=== PATIENT | male | born 1945 | race Caucasian/White ===

== ENCOUNTER → 2023-10-13 08:17 | Outpatient (REF) | payer MEDICARE, SELFPAY ==
[2023-10-13 10:35] LABS: ALT (SGPT) 21 U/L (0-50); AST (SGOT) 25 U/L (17-59); Albumin 4.1 g/dl (3.5-5.0); Alkaline Phosphatase 82 U/L (38-126); Blood Urea Nitrogen 16 mg/dl (9-20); Calcium 9.3 mg/dl (8.4-10.2); Carbon Dioxide 25 mmol/L (22-30); Chloride 105 mmol/L (98-107); Glucose 154 mg/dl (70-99); HDL Cholesterol 49 mg/dl; LDL Cholesterol, Calculated 103 mg/dl; Potassium 4.2 mmol/L (3.5-5.1); Sodium 136 mmol/L (135-145); Total Bilirubin 0.8 mg/dl (0.2-1.3); Total Cholesterol 186 mg/dl (50-199); Total Protein 7.3 g/dl (6.3-8.2); Triglyceride 173 mg/dl (10-149); Very Low Density Lipoprotein 34 mg/dl (0-30); eGFR > 60.00
[2023-10-13 13:08] LABS: Glycohemoglobin (HgbA1c) 7.8 % (4.0-5.6)
== END ==
LOC: HWLAB 08:17
PROVIDERS: ATTENDING PHYSICIAN Nurse Practitioner Family; FAMILY PHYSICIAN Family Medicine
DX: E11.9 Type 2 diabetes mellitus without complications (principal)
CPT/HCPCS: 36415; 80053; 80061; 83036

== ENCOUNTER → 2024-01-01 09:14 | Outpatient (REF) | payer MEDICARE, SELFPAY ==
[2024-01-01 12:23] LABS: ALT (SGPT) 24 U/L (0-50); AST (SGOT) 26 U/L (17-59); Albumin 4.4 g/dl (3.5-5.0); Alkaline Phosphatase 77 U/L (38-126); Blood Urea Nitrogen 16 mg/dl (9-20); Calcium 9.5 mg/dl (8.4-10.2); Carbon Dioxide 26 mmol/L (22-30); Chloride 107 mmol/L (98-107); Glucose 171 mg/dl (70-99); Potassium 4.3 mmol/L (3.5-5.1); Sodium 141 mmol/L (135-145); Total Bilirubin 0.7 mg/dl (0.2-1.3); Total Protein 7.6 g/dl (6.3-8.2); eGFR > 60.00
[2024-01-01 12:57] LABS: Glycohemoglobin (HgbA1c) 7.9 % (4.0-5.6)
== END ==
LOC: HWLAB 09:14
PROVIDERS: ATTENDING PHYSICIAN Internal Medicine Endocrinology, Diabetes & Metabolism; FAMILY PHYSICIAN Family Medicine
DX: E11.9 Type 2 diabetes mellitus without complications (principal)
CPT/HCPCS: 36415; 80053; 83036

== ENCOUNTER → 2024-04-05 08:28 | Outpatient (REF) | payer MEDICARE, SELFPAY ==
[2024-04-05 11:52] LABS: ALT (SGPT) 27 U/L (0-50); AST (SGOT) 33 U/L (17-59); Albumin 4.3 g/dl (3.5-5.0); Alkaline Phosphatase 66 U/L (38-126); Blood Urea Nitrogen 19 mg/dl (9-20); Calcium 9.5 mg/dl (8.4-10.2); Carbon Dioxide 22 mmol/L (22-30); Chloride 106 mmol/L (98-107); Glucose 166 mg/dl (70-99); HDL Cholesterol 52 mg/dl; LDL Cholesterol, Calculated 107 mg/dl; Potassium 4.4 mmol/L (3.5-5.1); Sodium 141 mmol/L (135-145); Total Cholesterol 181 mg/dl (50-199); Total Protein 7.2 g/dl (6.3-8.2); Triglyceride 111 mg/dl (10-149); Very Low Density Lipoprotein 22 mg/dl (0-30); eGFR > 60.00
[2024-04-05 12:01] LABS: Microalbumin, Random Urine 0.6 mg/dl (0.6-1.7); Microalbumin/creatinine Ratio 4.6 mg/g
[2024-04-05 12:58] LABS: Glycohemoglobin (HgbA1c) 7.5 % (4.0-5.6)
== END ==
LOC: HWLAB 08:28
PROVIDERS: ATTENDING PHYSICIAN Internal Medicine Endocrinology, Diabetes & Metabolism; FAMILY PHYSICIAN Family Medicine
DX: E11.9 Type 2 diabetes mellitus without complications (principal)
CPT/HCPCS: 36415; 80053; 80061; 82043; 82570; 83036

== ENCOUNTER → 2024-06-28 08:52 | Outpatient (REF) | payer MEDICARE, SELFPAY ==
[2024-06-28 13:06] LABS: ALT (SGPT) 26 U/L (0-50); AST (SGOT) 31 U/L (17-59); Albumin 4.6 g/dl (3.5-5.0); Alkaline Phosphatase 67 U/L (38-126); Blood Urea Nitrogen 20 mg/dl (9-20); Calcium 9.5 mg/dl (8.4-10.2); Carbon Dioxide 26 mmol/L (22-30); Chloride 105 mmol/L (98-107); Glucose 169 mg/dl (70-99); HDL Cholesterol 54 mg/dl; LDL Cholesterol, Calculated 106 mg/dl; Potassium 4.1 mmol/L (3.5-5.1); Sodium 142 mmol/L (135-145); Total Bilirubin 0.9 mg/dl (0.2-1.3); Total Cholesterol 183 mg/dl (50-199); Total Protein 7.7 g/dl (6.3-8.2); Triglyceride 118 mg/dl (10-149); Very Low Density Lipoprotein 23 mg/dl (0-30); eGFR > 60.00
[2024-06-28 13:28] LABS: PSA, Total - Screen 2.15 ng/ml (0.0-4.0)
[2024-06-28 13:43] LABS: Glycohemoglobin (HgbA1c) 7.5 % (4.0-5.6)
== END ==
LOC: HWLAB 08:52
PROVIDERS: ATTENDING PHYSICIAN Internal Medicine Endocrinology, Diabetes & Metabolism; FAMILY PHYSICIAN Family Medicine
DX: E11.9 Type 2 diabetes mellitus without complications (principal); Z12.5 Encounter for screening for malignant neoplasm of prostate
CPT/HCPCS: 36415; 80053; 80061; 83036; G0103

== ENCOUNTER → 2024-08-27 09:34 | Outpatient (REF) | payer MEDICARE, SELFPAY | LOC: RCS 09:34 | PROVIDERS: ATTENDING PHYSICIAN Internal Medicine Cardiovascular Disease; FAMILY PHYSICIAN Family Medicine | DX: I47.19 Other supraventricular tachycardia (principal); Z87.898 Personal history of other specified conditions; R42 Dizziness and giddiness | CPT/HCPCS: 93225; 93226 ==

== ENCOUNTER → 2024-11-04 08:15 | Outpatient (REF) | payer MEDICARE, SELFPAY ==
[2024-11-04 09:58] LABS: ALT (SGPT) 29 U/L (0-50); AST (SGOT) 27 U/L (17-59); Albumin 3.8 g/dl (3.5-5.0); Alkaline Phosphatase 65 U/L (38-126); Blood Urea Nitrogen 23 mg/dl (9-20); Calcium 9.7 mg/dl (8.4-10.2); Carbon Dioxide 27 mmol/L (22-30); Chloride 108 mmol/L (98-107); Glucose 153 mg/dl (70-99); HDL Cholesterol 46 mg/dl; LDL Cholesterol, Calculated 68 mg/dl; Potassium 4.4 mmol/L (3.5-5.1); Sodium 142 mmol/L (135-145); Total Bilirubin 1.1 mg/dl (0.2-1.3); Total Cholesterol 133 mg/dl (50-199); Total Protein 6.9 g/dl (6.3-8.2); Triglyceride 97 mg/dl (10-149); Very Low Density Lipoprotein 19 mg/dl (0-30); eGFR > 60.00
[2024-11-04 10:18] LABS: Glycohemoglobin (HgbA1c) 7.7 % (4.0-5.6)
== END ==
LOC: HWLAB 08:15
PROVIDERS: ATTENDING PHYSICIAN Internal Medicine Endocrinology, Diabetes & Metabolism; FAMILY PHYSICIAN Family Medicine; REFERRING PHYSICIAN Nurse Practitioner
DX: E11.9 Type 2 diabetes mellitus without complications (principal); E78.2 Mixed hyperlipidemia
CPT/HCPCS: 36415; 80053; 80061; 83036

== ENCOUNTER → 2024-11-22 12:56 | Outpatient (REF) | payer MEDICARE, SELFPAY | LOC: PAVMRI 12:56 | PROVIDERS: ATTENDING PHYSICIAN Physician Assistant Medical; FAMILY PHYSICIAN Family Medicine | DX: R42 Dizziness and giddiness (principal); R26.81 Unsteadiness on feet; R29.898 Other symptoms and signs involving the musculoskeletal system | CPT/HCPCS: 70551 ==

== ENCOUNTER → 2025-04-03 09:14 | Outpatient (REF) | payer MEDICARE, SELFPAY ==
--- NOTE | 2025-01-09 12:00 | PN.DIAED02 ---
Referral
DSME Class Series Code: [id number]
Referred For: Diabetes Self-Management Training, Medical Nutrition Therapy, Self-Blood Glucose Monitoring, Long-Term Complication Instruction, Accute Complication Instruction, Continuous Glucose Monitoring, Medication management, Insulin
Instruction, Care Coordination, Disease Management
PHI Release Authorization Form Signed: Yes
Demographic
Patient's primary language-: Yi
Education: Some college
Occupation: Retired
- Social
Primary Support Person: Self & spouse
Primary Care Takers: Self & spouse
Living Arrangements: Self & spouse
- Learning Methods
Preferred Method: Reading
Barriers to Learning: None
Glycemic Control
- Blood Glucose Monitoring Assessment
Blood glucose monitoring at home: Yes
Monitor Brands: Other (CGM)
- Ketone Monitoring Assessment
Patient monitoring ketone: No
- Hyperglycemia Assessment
Experiences Hyperglycemia: Yes
Frequency: 7 or more times per week (BS)
- Hypoglycemia Assessment
Patient carries glucose source: No
Patient experiences hypoglycemia: Yes
Frequency: Other (TWICE IN PAST 2 MONTHS)
Treatment: juice
Time: fasting
Patient has required treatment by others: No
History of Hypoglycemia Unawareness: No
- Blood Glucose Monitoring Results
Source: meter (CGM)
- Hemoglobin A1c
Date: 11/04/24
A1C Percentage (%): 7.7
Medical History of Diabetes
Family Diabetes History: Father, Grandmother
Previous visit with Dietitian: No
Complications/Comorbidity/Specialist: Hypertension (Catopril 12.5 mg up to TID PRN if BP > 180/90), Hyperlipidemia (Rosuvastatin 5 mg QD), Metabolic (T2D: Farxiga 10 mg QD, Humalog 10 u before meals, Tresiba 4 u QD, Repaglinide .05 MG before meals,
Glimepiride 2 mg BID before meals, ), Pulmonary disease (asthma/bronchitis: Fasenra 30 mg q8w, Singulair 10 mg QD, Breo Ellipta 1 puff/day, Albuterol 19 mcg PRN, IPRA ALBUT 2.5 mg/3mL PRN, Kellie 180 mg QD)
Current Home Medication
- Insulin Management
Patient adjusts own insulin dosages: No
Measures
- Anthropometrics
Height: 5 ft 8 in
Actual Weight: 166 lb 12.8 oz
- Blood Pressure / Pulse
Blood pressure: 122/78
Pulse: 86
- Diabetes Management
Medical Management for Diabetes: Dilated eye exam (10/31/2024)
Self-Care
- Tobacco Usage
Do you now, or have you ever smoked?: Never smoked
- Alcohol & Drugs Usage
Drinks Alcohol: No
- Meals & Dining
Meals & Dining: Patient skips meals: No, Food Intolerance / Allergy: No, Cultural / Church Dietary Needs: No
Primary Food Insurance Verification Rep: Self & Spouse
Primary Nutrition Intern: Self & Spouse
Dining Out Frequency: Other (once a week)
- Physical Activity
Physical Limitation: No
Patient participates in physical Activity: No
- Patient-Self Assessment
Diabetes Knowledge: Poor
Feelings About Diabetes: Acceptance
Care Plan
- Education Needs
Patient Education Needs: Diabetes disease process, Chronic complications, Acute complications, Medication, Monitoring, Physical activity, Psychosocial Adjustment, Nutritional management, Goal setting & problem solving
Recommended Diabetes Training Program based on assessment: Outpatient Diabetes Education Program
- Plan of Care
Plan of Care:
01/09/2025 DSME CLASS INITIAL CONSULTATION
Met with and Mrs. Jimenez for registration and initiation of Diabetes Self-management. Patient has had diabetes for 5 years, states he was on prednisone for his bronchitis which led to his DM diagnosis. He sees Dr. Cifuentes at [facility], unsure if he has T1D or T2D but was told he is still producing some insulin. Was on Ozempic but he stopped taking a year ago, feels he is still underweight
Reviewed his medications, recently switched from Fiasp to Humalog 10 units before meals, 4 units Tresiba at night. I educated on proper injection technique, he has not been priming the pen and thought once he did not get his dose of insulin Also
educated on proper storage, site rotation, lipodystrophy. Reviewed Glimepiride dose of 2 mg BID, enforced this is to be taken 30 minutes before meals due to mechanism of action in stimulating insulin release; reviewed Repaglinide 0.5 mg TID before
meals. He admits to forgetting his oral medications this morning.
In addition medications listed in assessment, he also takes Musinex PRN, Zinc 50 mg, B12 5000 mcg QD, B3 QD, Vitamin D QD.
He uses Free Style Deena CGM, 30 day TIR 70-180 is 37%, 14 day 49%, 7 day 35%. BS range of 181-240 is 30 day 43%, 14 day 36%, 7 day 39%. Greater than 240 mg/dL 30 day is 20%, 14 day 15%, 7 day 26%.
His is very active in helping him manage his diet. He eats 3 small meals a day. Ate breakfast at 9am: hard boiled egg, 2 strawberries, protein bread and 2 hours PP glucose is 249 mg/dL but forgot Glimepiride and Repaglinide. Glucose in the
200's between 12am - 9am. Spouse, Kimberly keeps diet at 2000 calories a day.
He experienced hypoglycemia twice in the past 3 months due to skipping dinner. States he feels very lethargic and has a poor appetite. He is not exercising. We discussed benefits of physical activity, he does enjoy walking and has access to a
fitness center.
We reviewed DM complications, importance of eye, dental and podiatry exams. Written material provided. Mr. Aj has office phone # and email, will outreach if he has further questions prior to class in March.
--- NOTE | 2025-01-09 13:29 | PN.DIAED04 ---
Education Record
- Education Record
Class Attended: Other
[facility] Class Series Code: [id number]
Instructor: Registered Nurse (Sailaja Olivarez RN)
Pre-Program Knowledge: No knowledge
Pre-Test Score (%): 50
Goals
- Goal 1
Being Active: Exercise 15 minutes-3 times per week (no exercise at this time)
Goals To Be Evaluated: Exercise 15 mins-3x/week
- Goal 2
Healthy Eating: Follow meal plan
Goals To Be Evaluated: Follow meal plan
- Goal 3
Monitoring: Check blood sugar 4x daily-b4 breakfast/b4 lunch/b4 dinner/at bedtime (CGM)
Goals To Be Evaluated: Check blood sugar 4x/day
--- NOTE | 2025-04-04 12:36 | PN.DIAED14 ---
This is to notify you that your patient with diabetes, STEPHANY LOPEZ ( 1945), has enrolled in our diabetes self-management classes that are being held at [facility].
These classes will include an introduction to diabetes, diet, medication, exercise and prevention of complications. At the end of our class series, you will receive a report of your patient's participation and progress for your records.
Please contact me at the Diabetes Center, , if there is any particular information regarding your patient that might be helpful to me.
Sincerely,
Alberto CASAS-NILO, [facility]
--- NOTE | 2025-04-04 12:36 | PN.DIAED04 ---
Education Record
- Education Record
Class Attended: Class 1
DSME Class Series Code: [id number]
Instructor: Nurse Practitioner (YESSENIA Christy)
Class Curriculum:
Outpatient Diabetes Education Program:
Class 1 (120 minutes)
Describe the diabetes disease process and treatment options
Diabetes management
Develop personal strategies to promote health and behavior change
Integrate psychosocial adjustment for daily living
Monitor blood glucose and other parameters. Interpret and use the results for self-management decision making
Prevent, detect, and treat acute complications
Class Length (mins): 120
Post-Class 1 Test Score (%): 100
== END ==
LOC: DES 09:14
PROVIDERS: ATTENDING PHYSICIAN Family Medicine
DX: E11.65 Type 2 diabetes mellitus with hyperglycemia (principal)
CPT/HCPCS: 99078

== ENCOUNTER → 2025-04-10 09:30 | Outpatient (REF) | payer MEDICARE, SELFPAY ==
--- NOTE | 2025-04-11 10:22 | PN.DIAED04 ---
Education Record
- Education Record
Class Attended: Class 2
DSME Class Series Code: [id number]
Instructor: Registered Dietitian (Anali Mcneal, RD, LDN, CDE)
Class Curriculum:
Outpatient Diabetes Education Program:
Class 2 (120 minutes)
Incorporate nutritional management into lifestyle
Understanding nutritional value
Understanding carbohydrate counting
Class Length (mins): 120
== END ==
LOC: DES 09:30
PROVIDERS: ATTENDING PHYSICIAN Family Medicine
DX: E11.65 Type 2 diabetes mellitus with hyperglycemia (principal)
CPT/HCPCS: 99078

== ENCOUNTER → 2025-04-17 09:53 | Outpatient (REF) | payer MEDICARE, SELFPAY | LOC: DES 09:53 | PROVIDERS: ATTENDING PHYSICIAN Family Medicine | DX: E11.65 Type 2 diabetes mellitus with hyperglycemia (principal) | CPT/HCPCS: 99078 ==

== ENCOUNTER → 2025-04-24 10:17 | Outpatient (REF) | payer MEDICARE, SELFPAY | LOC: DES 10:17 | PROVIDERS: ATTENDING PHYSICIAN Family Medicine | DX: E11.65 Type 2 diabetes mellitus with hyperglycemia (principal) | CPT/HCPCS: 99078 ==

== ENCOUNTER → 2025-06-05 15:13 | Outpatient (REF) | payer MEDICARE, SELFPAY ==
--- NOTE | 2025-06-05 15:18 | PN.DIAED04 ---
Education Record
- Education Record
Class Attended: Class 5
DSME Class Series Code: [id number]
Instructor: Registered Nurse (Sailaja Olivarez RN)
Class Curriculum:
Outpatient Diabetes Education Program:
Class 5 (120 minutes)
Prevent, detect, and treat acute complications
Prevent, detect, and treat chronic complications through risk reduction
Develop personal strategies to address psychosocial issues and concerns
Development of diabetes self-management support plan
Letter to physician with DSMS plan attached sent
Class Length (mins): 120
Post-Program Knowledge: Demonstrates competency
Post-Test Score (%): 88
Post-Program Assessment
- Post-Program Assessment
Actual Weight: 178 lb
Blood pressure: 130/82
Post-Program Depression Survey Score: 2
Reviewing Previous Goals?: Yes
Pre-Program Depression Survey Score: 12
- Goals 1 Evaluation
Goals To Be Evaluated: Exercise 15 mins-3x/week
- Goals 2 Evaluation
Goals To Be Evaluated: Follow meal plan
- Goals 3 Evaluation
Goals To Be Evaluated: Check blood sugar 4x/day
--- NOTE | 2025-06-05 15:20 | PN.DIAED22 ---
- DSME LT-Depress Improved
Depression is associated with poor diabetes self-management and perceived inability to control diabetes.
After careful consideration and multiple layers of input, the [facility]'s outpatient diabetes education program has implemented a depression screening tool. The tool is the PHQ-9 Quick Depression Assessment.
Each patient who attends the outpatient diabetes education class responds to 9 questions before the first class starts. At the completion of the 5 classes, each patient again responds to the same 9 questions. In theory, after completing the program
the hope is that the patient will feel somewhat more capable of diabetes self-management.
Your patient, STEPHANY LOPEZ ( 1945), scored 12 on the pre-depression screening and 2 on the post-depression screening which, although improved, indicates mild/moderate/severe depression.
Enclosed please find a copy of the depression screening.
If you require any additional information, please do not hesitate to contact me at [phone].
Sincerely,
Alberto CASAS-,[facility]
--- NOTE | 2025-06-05 15:20 | PN.DIAED16 ---
This is to notify you that your patient with diabetes, STEPHANY LOPEZ ( 1945), has attended the entire series of Diabetes Self-Management Education Classes.
Class 1 (120 minutes): Diabetes Overview - monitoring, stress/psychosocial adjustment, support, goal setting
Class 2 (120 minutes): Meal Planning - serving sizes, menu plans
Class 3 (120 minutes): Introduction to Carbohydrate Counting, Analyzing Food Labels
Class 4 (120 minutes): Medication, Exercise and Activity
Class 5 (120 minutes): Sick Day Management, Strategies to Reduce Complications, Problem Solving, Resources
The following behavioral goals were identified:
Goal 1: Exercise 15 mins-3x/week
Goal 2: Follow meal plan
Goal 3: Check blood sugar 4x/day
A follow-up call will be made within three to six months to evaluate attainment of these goals and to check post-program Hemoglobin A1c and overall progress. All class participants are encouraged to contact me if I can be any further assistance in
learning how to manage their diabetes.
Sincerely,
Alberto CASAS-,[facility]
== END ==
LOC: DES 15:13
PROVIDERS: ATTENDING PHYSICIAN Family Medicine
DX: E11.65 Type 2 diabetes mellitus with hyperglycemia (principal)
CPT/HCPCS: 99078

== ENCOUNTER → 2025-06-30 10:12 | Outpatient (REF) | payer MEDICARE, SELFPAY ==
[2025-06-30 12:26] LABS: Glycohemoglobin (HgbA1c) 7.2 % (4.0-5.9)
[2025-06-30 14:13] LABS: ALT (SGPT) 25 U/L (0-50); AST (SGOT) 26 U/L (17-59); Albumin 4.3 g/dl (3.5-5.0); Alkaline Phosphatase 59 U/L (38-126); Blood Urea Nitrogen 17 mg/dl (9-20); Calcium 9.3 mg/dl (8.4-10.2); Carbon Dioxide 29 mmol/L (22-30); Chloride 104 mmol/L (98-107); Glucose 162 mg/dl (70-99); HDL Cholesterol 55 mg/dl; LDL Cholesterol, Calculated 77 mg/dl; Potassium 4.5 mmol/L (3.5-5.1); Sodium 136 mmol/L (135-145); Total Protein 7.3 g/dl (6.3-8.2); Very Low Density Lipoprotein 18 mg/dl (0-30); eGFR > 60.00
== END ==
LOC: REG 10:12
PROVIDERS: ATTENDING PHYSICIAN Internal Medicine Endocrinology, Diabetes & Metabolism; FAMILY PHYSICIAN Family Medicine; OTHER PHYSICIAN Internal Medicine
DX: E11.9 Type 2 diabetes mellitus without complications (principal)
CPT/HCPCS: 36415; 80053; 80061; 83036